=== PATIENT | male | born 1940 | race Caucasian/White ===

== ENCOUNTER 2016-05-18 09:45 | Day surgery (SDC) | payer MEDICARE, OTHER ==
--- NOTE | ~2016-05-18 | EGD ---
EGD REPORT [facility] [address] [address] NAME: MARKY BRYANT : 44 STATUS : REG [facility] PAT#: [id number] AGE: 75 ADM/REG DATE : 05/18/16 MR#: [id number] REPORT SERV DATE: 05/18/16 DICTATED BY: SUZY RICH DATE: 05/19/16 REPORT STATUS : Draft TRANSCRIBED BY: [facility] DATE: 05/19/16 Endoscopy Center Patient Name: Marky Bryant Date of : 1940 Attending MD: KAY RICH MD Procedure Date No Time: 05/18/2016 Procedure: Colonoscopy Indications: Clinically significant diarrhea of unexplained origin Referring MD: COLIN ROYAL Medicines: See the Anesthesia note for documentation of the administered medications Complications: No immediate complications. Procedure: Pre-Anesthesia Assessment: - ASA Grade Assessment: III - A patient with severe systemic disease. - Prior to the procedure, a History and Physical was performed, and patient medications and allergies were reviewed. The patient's tolerance of previous anesthesia was also reviewed. The risks and benefits of the procedure and the sedation options and risks were discussed with the patient. All questions were answered, and informed consent was obtained. Prior Anticoagulants: The patient has taken no previous anticoagulant or antiplatelet agents. After reviewing the risks and benefits, the patient was deemed in satisfactory condition to undergo the procedure. After I obtained informed consent, the scope was passed under direct vision. Throughout the procedure, the patient's blood pressure, pulse, and oxygen saturations were monitored continuously. The PCF [id number] was introduced through the anus and advanced to the cecum, identified by appendiceal orifice and ileocecal valve. The ileocecal valve, appendiceal orifice and rectum were photographed. The entire colon was examined. The colonoscopy was performed without difficulty. The patient tolerated the procedure well. The quality of the bowel preparation was adequate. Findings: The perianal and digital rectal examinations were normal. Normal mucosa was found in the entire colon. Biopsies were taken with a cold forceps for histology. Non-bleeding internal hemorrhoids were found during retroflexion and were Grade I (internal hemorrhoids that do not prolapse). No other significant abnormalities were identified in a careful EGD REPORT [address] [address] NAME: MARKY BRYANT : 44 STATUS : REG [facility]#: [id number] AGE: 75 ADM/REG DATE : 05/18/16 MR#: [id number] REPORT SERV DATE: 05/18/16 DICTATED BY: SUZY RICH DATE: 05/19/16 REPORT STATUS : Draft TRANSCRIBED BY: [facility] DATE: 05/19/16 examination of the remainder of the colon. Recommendation: - Patient has a contact number available for emergencies. The signs and symptoms of potential delayed complications were discussed with the patient. Return to normal activities tomorrow. Written discharge instructions were provided to the patient. - Regular diet. - Discharge patient to home. - Continue present medications. - Await pathology results. - Repeat colonoscopy is not recommended for surveillance. Procedure Code(s): --- Professional --- 98532, Colonoscopy, flexible, proximal to splenic flexure; with biopsy, single or multiple Diagnosis Code(s): --- Professional --- R19.7, Diarrhea, unspecified CPT copyright 2013 [employer]. All rights reserved. The codes documented in this report are preliminary and upon incident coordinator review may be revised to meet current compliance requirements. KAY RICH MD 05/18/2016 1:13 PM This report has been signed electronically. Number of Addenda: 0 Note Initiated On: 05/18/2016 12:42 PM Scope Withdrawal Time 0 hours 6 minutes 22 seconds [id number] [id number]
[~2016-05-18 09:45] MED LIST: AMB5 PO; ARANESP40 IV; ASAB PO; BACTROCR TOP; CEFT2 PO; CELEXA10 PO; CELEXA20 PO; CLARIT10 PO; COREG6 PO; CRESTOR20 MG PO; D.O.S.100 MG PO; GLUCOPHXR PO; HEPA50006 SC; INHALER; INSNOVR SC; LACT30UDL PO; LEVEMFLXPN SC; LEVEMIR SC; LIPITOR10 PO; LIPITOR20 PO; LOTREL1 CA5 PO; MEDROLPAK4 PO; MUCINEX600 MG PO; NEUR300 PO; NORCO1 TA1 PO; NOVOLOG SC; NOVOPEN SC; PACERONE100 MG PO; PACERONE200 MG PO; PEP20 PO; PHENERGAN25 MG/ML IJ; PHOSLO PO; PROVENTSOL INH; SINGULAIR1 PO; SYMAX-SR0.375 MG PO; SYMBICORT 160/41 INH INH; T PO; TEKTURNA300 MG PO; TESS PO; TOPXL25 PO; TYLENOL ARTH650 MG PO; ULTRAM50 PO; [UNRECOGNIZED DRUG - OTHER]
[2016-05-18 10:27] LABS: CALCIUM, SERUM 8.5 MG/DL (8.5-10.4); CHLORIDE, SERUM 101 MMOL/L (96-112); GFR AFRICAN AMERICAN 22 ML/MIN (>=60); GFR NON AFRICAN AMERICAN 19 ML/MIN (>=60); GLUCOSE, SERUM 238 MG/DL (60-99); POTASSIUM, SERUM 4.1 MMOL/L (3.5-5.3); SODIUM, SERUM 142 MMOL/L (135-148)
[2016-05-18 10:28] LABS: BUN (BLOOD UREA NITROGEN) 18 MG/DL (6-23); CO2 (CARBON DIOXIDE) 31 MMOL/L (24-34); CREATININE 3.13 MG/DL (0.70-1.30)
== END 2016-05-18 23:59 | disposition home or self-care (01) ==
LOC: DMU 09:45
PROVIDERS: Anesthesiology; Internal Medicine Gastroenterology
PROC: 0DBE8ZX Excision of Large Intestine, Via Natural or Artificial Opening Endoscopic, Diagnostic (ICD-10-PCS; principal; 2016-05-18 11:30)
DX: K64.0 First degree hemorrhoids (principal); E11.40 Type 2 diabetes mellitus with diabetic neuropathy, unspecified; I25.10 Atherosclerotic heart disease of native coronary artery without angina pectoris; I25.2 Old myocardial infarction; J44.9 Chronic obstructive pulmonary disease, unspecified; M19.90 Unspecified osteoarthritis, unspecified site; F32.9 Major depressive disorder, single episode, unspecified; Z95.1 Presence of aortocoronary bypass graft; Z79.4 Long term (current) use of insulin; Z79.899 Other long term (current) drug therapy; Z90.49 Acquired absence of other specified parts of digestive tract; Z98.890 Other specified postprocedural states
CPT/HCPCS: 80048; 88305

== ENCOUNTER 2016-05-29 15:45 | Inpatient (IN) | payer MEDICARE, OTHER ==
--- NOTE | ~2016-05-29 | CN ---
Consultation Report [facility] [address] [place]. [address] NAME: DAT BRYANT : 44 STATUS : ADM IN [facility]#: [id number] AGE: 75 ADM/REG DATE : 05/29/16 MR#: [id number] REPORT SERV DATE: 05/30/16 DICTATED BY: ALFONSO GONG IV DATE: 05/29/16 REPORT STATUS : Draft TRANSCRIBED BY: BERNARDO DATE: 05/29/16 CRITICAL CARE CONSULT DATE OF CONSULTATION: 05/29/2016 REASON FOR REQUEST: Reported transient PEA arrest requiring several chest compressions, now awake and responsive. History was obtained from the family, the patient, and from the records. HISTORY OF PRESENT ILLNESS: Mr. Bryant is a 75-year-old male with a history of end-stage renal disease, on dialysis, diabetes mellitus, hyperlipidemia, obstructive sleep apnea, noncompliant with CPAP, coronary artery disease, who was admitted to the ICU after thrombectomy to the left fistula, now with likely respiratory event with questionable transient loss of pulse. The patient has had end-stage renal disease since his coronary artery bypass grafting in 2012. He developed a thrombus in his left upper arm fistula for which he underwent thrombectomy today. The patient, according to the notes from PACU, had agonal respiratory efforts when he arrived into the PACU, and as they were hooking up the monitor, they failed to feel a carotid pulse. The patient had one cycle of CPR with return of spontaneous breathing and consciousness and pulse. The patient was being Ambu bagged during this period of time. The patient was conversant with no complaints at that point though he was moved to the ICU for observation. The patient currently denies shortness of breath, chest pain. He had no symptoms of cough, sputum production, fevers, chills, sweats, or hemoptysis prior to presentation. He is not on bronchodilator medications, though he is on supplemental oxygen at nighttime with which he is noncompliant. The patient carries a diagnosis of severe obstructive sleep apnea, though has had considerable weight loss and is noncompliant with his CPAP therapy. The notes that his snoring has improved and the patient denies significant sedentary hypersomnolence. PULMONARY HISTORY: Remarkable for no history of childhood asthma, known adult obstructive lung disease or previous pneumonia. He has a 95-foir-[id number] smoking history, having quit 35 years ago. 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 He is reportedly up to date with seasonal influenza vaccine and pneumococcal vaccinations. PAST MEDICAL HISTORY: Remarkable for: 1. End-stage renal disease, on dialysis. 2. Diabetes mellitus. 3. Hyperlipidemia. 4. Obstructive sleep apnea. 5. Coronary artery disease. SURGERIES: 1. Cholecystectomy. 2. Umbilical hernia repair. Consultation Report [address] [place]. [address] NAME: DAT BRYANT : 44 STATUS : ADM IN PAT#: [id number] AGE: 75 ADM/REG DATE : 05/29/16 MR#: [id number] REPORT SERV DATE: 05/30/16 DICTATED BY: ALFONSO GONG IV DATE: 05/29/16 REPORT STATUS : Draft TRANSCRIBED BY: BERNARDO DATE: 05/29/16 3. Coronary artery bypass grafting. 4. PEG tube placement with closure of the gastrostomy hole. 5. Fistula placement for dialysis. ALLERGIES: NO KNOWN DRUG ALLERGIES. MEDICATIONS: Listed medications at this time are only Neurontin 300 mg at bedtime, 4 units of short-acting insulin twice a day, and Levemir 2 units twice a day. SOCIAL HISTORY: Remarkable for the remote tobacco use as above. He denies alcohol or illicit drug use. He is and has four children. FAMILY HISTORY: He denies any significant illnesses in the family members. REVIEW OF SYSTEMS: 14-systems reviewed and pertinent positives as noted above. PHYSICAL EXAMINATION: GENERAL: This is an obese, elderly male, in no current distress. He is wearing supplemental oxygen. VITAL SIGNS: Temperature is 98.6, pulse is 80, respiratory rate is 25, saturation is 96% on 3 L, blood pressure is 162/78. HEENT: The patient is normocephalic, atraumatic. Extraocular movements are intact. Pupils reactive to light. Sclerae and conjunctivae are normal. He has a nasal cannula in place. He is edentulous. He has Mallampati 4 airway with marked narrowing of the posterior pharyngeal space. NECK: Without any palpable lymphadenopathy or thyromegaly. CHEST: The patient has decreased breath sounds with a normal expiratory phase. There are no crackles, wheezes, or rhonchi noted. Sternotomy scar. CARDIOVASCULAR: Jugular venous pulsations are difficult to elicit secondary to body habitus. He has a distant regular S1, S2 with no clear murmur or S3. Peripheral pulses are diminished. Carotid upstrokes are 1+ with no bruit. ABDOMEN: Obese, soft. There are hypoactive bowel sounds. There is no palpable hepatosplenomegaly or masses. Surgical scars are noted. GENITOURINARY: The patient has normal male external genitalia. EXTREMITIES: Demonstrate the fistula in his left upper arm. There is no cyanosis, clubbing, or palpable cords. NEUROLOGIC: Strength is 5/5 and sensation is intact to light touch. LABORATORY DATA: Chest x-ray demonstrates postsurgical changes, coronary artery bypass grafting. It is a rotated film. No focal infiltrates are noted. There is a linear scar in the left mid lung field which is noted on previous studies. LABORATORY DATA: CBC: Hemoglobin 9.6, hematocrit 30.3, platelet count was 291,000, white blood cell count of 6.9. Sodium is 142, potassium 4.4, chloride 102, bicarb of 30, BUN 28, Consultation Report [place] [id number] [facility] [place]. [address] NAME: DAT BRYANT : 44 STATUS : ADM IN PAT#: [id number] AGE: 75 ADM/REG DATE : 05/29/16 MR#: [id number] REPORT SERV DATE: 05/30/16 DICTATED BY: ALFONSO GONG IV DATE: 05/29/16 REPORT STATUS : Draft TRANSCRIBED BY: BERNARDO DATE: 05/29/16 creatinine 3.77, glucose of 168, calcium is 8.3. A PH 7.36 pCO2 of 51, pO2 of 121 on his blood gas in 3 L. ASSESSMENT AND PLAN: 1. Respiratory. This is likely a primary respiratory event. By description, the patient has hypercapnia which may be secondary to some obese hypoventilation syndrome or residual sedation after his procedure. The patient has previous pulmonary function studies demonstrating no chronic obstructive pulmonary disease in 2013. The patient will have oxygen titrated to maintain saturation 90% to 94% range. The patient has by report severe obstructive sleep apnea and is currently not compliant with CPAP though has had considerable weight loss. We discussed obtaining a repeat outpatient sleep evaluation. DuoNeb will be given as needed for wheezing. 2. Cardiovascular. We will monitor for any dysrhythmias, serial enzymes will be obtained. If there is nothing abnormal in EKG, hydralazine will be given as needed for elevated blood pressure. 3. Endocrinologic. Thyroid functions will be obtained with hypercapnia. Levemir dose will be continued with an increase insulin sliding scale. Hemoglobin A1c will be obtained. 4. Renal. Dialysis will be provided tomorrow. 5. Gastrointestinal. [employer] renal diet has been ordered. 6. Hematologic. Heparin subcutaneous for deep vein thrombosis prophylaxis. 7. Neurologic. We will continue the outpatient Neurontin. 8. Infectious Disease. Urine culture will be obtained with a previous recurrent urinary infections. Thank you for consulting us. We will follow the patient with you. NM/MODL Alfonso Gong IV, M.D. / [id number] CC: Pasquale Mena M.D.
--- NOTE | ~2016-05-29 | CN ---
Consultation Report [facility] [address] [place]. [address] NAME: DAT BRYANT : 44 STATUS : ADM IN [facility]#: [id number] AGE: 75 ADM/REG DATE : 05/29/16 MR#: [id number] REPORT SERV DATE: 05/30/16 DICTATED BY: ANAND ORTEGA DATE: 05/30/16 REPORT STATUS : Draft TRANSCRIBED BY: MODBerenice DATE: 05/30/16 CARDIOLOGY CONSULTATION NOTE DATE OF CONSULTATION: 05/30/2016 REASON FOR CONSULTATION: Cardiac arrest following open thrombectomy of left AV dialysis fistula. HISTORY OF PRESENT ILLNESS: Mr. Bryant is a pleasant 75-year-old man who is a patient of Dr. Hemant Jasso. The patient has a history of coronary artery disease, status post coronary artery bypass grafting surgery in the year 2012. The patient developed end-stage renal disease following bypass surgery. He has been on hemodialysis since 2012. The patient had an AV fistula placed shortly following development of end-stage renal disease. The patient has had multiple procedures for thrombectomy of his AV fistula. He was admitted for an open thrombectomy yesterday. The patient describes an approximately two-month history of progressive exertional dyspnea, though he denies any significant chest pain. Of note, the patient did have typical angina prior to bypass surgery. The patient otherwise had no significant symptoms before surgery. The surgery was performed without significant complications. The patient was being brought back to the PACU, when he suddenly developed asystole. CPR was started, and the patient had return of spontaneous circulation before any medications could be administered. He eventually woke up, and at this point, feels back to his usual state of health. The patient presently denies any unusual chest pain or dyspnea. The Cardiology Service has been consulted to make further recommendations in the setting of the patient's postoperative cardiac arrest. PAST MEDICAL HISTORY: 1. Coronary artery disease, status post coronary artery bypass grafting in the year 2012. 2. Aortic sclerosis without stenosis. 3. Type 2 diabetes - insulin dependent. 4. End-stage renal disease, on hemodialysis. 5. Hypertension. 6. Dyslipidemia. 7. Untreated obstructive sleep apnea. PAST SURGICAL HISTORY: Significant for: 1. Coronary artery bypass graft surgery with MORENO to LAD, saphenous vein graft to the first diagonal, and saphenous vein graft to the posterior descending artery in 08/2012. 2. AV fistula placement in approximately the year 2012 with multiple subsequent revisions and procedures for thrombosis. FAMILY HISTORY: Noncontributory. SOCIAL HISTORY: The patient stopped smoking more than 30 years ago. He has no significant history of alcohol use. He is . Consultation Report [place] [id number] [place]. [address] NAME: DAT BRYANT : 44 STATUS : ADM IN PAT#: [id number] AGE: 75 ADM/REG DATE : 05/29/16 MR#: [id number] REPORT SERV DATE: 05/30/16 DICTATED BY: ANAND ORTEGA DATE: 05/30/16 REPORT STATUS : Draft TRANSCRIBED BY: BERNARDO DATE: 05/30/16 ALLERGIES: THE PATIENT HAS NO KNOWN MEDICATION ALLERGIES. HOME MEDICATIONS: The patient apparently stopped all of his cardiac medications. He is presently taking only the following. 1. Gabapentin 300 mg p.o. q.h.s. 2. NovoLog insulin 4 units subcutaneously twice daily. 3. Levemir insulin 2 units subcutaneously twice daily. REVIEW OF SYSTEMS: A complete 12-system review was performed. This is noncontributory except for the pertinent positives and negatives noted in the history of present illness above. PHYSICAL EXAMINATION: VITAL SIGNS: Temperature is 98.6 degrees Fahrenheit, blood pressure is 161/75 mmHg, heart rate is currently 72 beats per minute and regular, respirations 14, and oxygen saturation is 96% on a 2 L nasal cannula. CONSTITUTIONAL: The patient is an obese white man in no acute distress. EYES: PERRL, EOMI, clear conjunctiva. HEAD/MNT: NCAT with moist mucous membranes and grossly normal hard and soft palate. NECK: Supple with no obvious thyromegaly or lymphadenopathy CARDIOVASCULAR: There is a regular rhythm with a normal S1 and a physiologically split second heart sound. There is a grade 1/6 systolic ejection murmur consistent with aortic sclerosis versus flow murmur. The jugular venous pressure is difficult to estimate, but appears to be at the upper limit of normal at 8 cm. PULMONARY: Clear to auscultation bilaterally, no wheezing, rales or rhonchi noted. No dullness to percussion. Non-labored. ABDOMINAL: Soft, non-tender, non-distended with no hepatosplenomegaly noted. EXTREMITIES: There is an AV fistula in the left upper extremity with normal bruit. Sutures are in place over the patient's surgical wound. The wound appears clean, dry, and intact with no erythema or other evidence of infection. MUSCULOSKELETAL: Grossly normal strength and range of motion in all extremities INTEGUMENTARY: Skin appears intact with no bruises, wounds or active lesions noted NEURO/PSYC: Alert and oriented x3, with no dysarthria, facial droop or lateralizing weakness noted. IMAGIN-lead EKG: A 12-lead EKG from 05/30/2016 at 0322 hours shows normal sinus rhythm with an incomplete right bundle-branch block pattern. There is poor anterior R-wave progression noted. There are nonspecific ST/T-wave abnormalities. The chest x-ray shows changes of coronary artery bypass grafting surgery with mild-to- moderate pulmonary vascular congestion. LABORATORY DATA: Troponin I is less than 0.02. CBC shows a white blood cell count of 6.2, hemoglobin 9.3, hematocrit 29, and platelets 253. Electrolytes show a sodium of 142, Consultation Report [facility] [address] [facility] [place]. [address] NAME: DAT BRYANT : 44 STATUS : ADM IN [facility]#: [id number] AGE: 75 ADM/REG DATE : 05/29/16 MR#: [id number] REPORT SERV DATE: 05/30/16 DICTATED BY: ANAND ORTEGA DATE: 05/30/16 REPORT STATUS : Draft TRANSCRIBED BY: MODL DATE: 05/30/16 potassium 4.1, chloride is 102, CO2 of 28, BUN is 30, creatinine is 3.8, and glucose is 262. Calcium 7.9. Magnesium 1.9. Albumin is 2.6. The patient's repeat troponin I is 0.03. TSH is normal at 0.78. Free T4 is 1.05. Hemoglobin A1c is 7.3. ASSESSMENT AND PLAN: 1. Status post asystole/cardiopulmonary arrest: Given the patient's two-month history of progressive dyspnea, I feel coronary angiography is warranted to evaluate for occlusive coronary artery disease or disease involving the patient's bypass grafts. Risks and benefits of cardiac catheterization were discussed with the patient. The patient is currently asymptomatic and myocardial infarction has been ruled out. The patient will be scheduled for cardiac catheterization tomorrow morning. An echocardiogram will be obtained today to ensure the patient does not develop any significant worsening of his LV systolic function. The patient will continue on a heparin drip. 2. Type 2 diabetes: The patient is being followed by the Hospital Medicine Service and the Critical Care Service. 3. End-stage renal disease: We will try to coordinate with the Nephrology Service to arrange for hemodialysis following the patient's cardiac catheterization. Thank you for allowing me to participate in the care of Mr. Bryant. The Cardiology Service will continue to follow the patient closely during this hospitalization. ANIYA/BERNARDO Anand Ortega MD / [id number] CC: Pasquale Mena M.D. NO PCP
--- NOTE | ~2016-05-29 | HP ---
History And Physical [address] [place]. [address] NAME: DAT NIEVES : 44 STATUS : ADM IN PAT#: [id number] AGE: 75 ADM/REG DATE : 05/29/16 MR#: [id number] REPORT SERV DATE: 05/30/16 DICTATED BY: RAVINDER WHEELER DATE: 05/30/16 REPORT STATUS : Draft TRANSCRIBED BY: MODL DATE: 05/30/16 DATE OF ADMISSION: 05/29/2016 HISTORY: The patient is a 75-year-old male who presents with occlusion of his left arm AV fistula. He said it was worked on approximately three weeks ago. He dialyzed last three days ago. However, today at dialysis, it was not able to function. He is currently without any other complaints. REVIEW OF SYSTEMS: He denies fever, chills, or stomach ache. He denies chest pain, palpitations, shortness of breath, cough, or GI complaints. PAST MEDICAL HISTORY: Significant for end-stage renal disease, coronary artery disease, diabetes, hypertension, and hypercholesterolemia. PAST SURGICAL HISTORY: Significant for multiple access procedures in the left arm and coronary bypass surgery. SOCIAL HISTORY: Negative for current tobacco use. FAMILY HISTORY: Noncontributory. ALLERGIES: LISTED ON THE CHART. PHYSICAL EXAMINATION: GENERAL: The patient is in no distress. VITAL SIGNS: Blood pressure 201/88 and pulse 67. LUNGS: Clear. HEART: Regular. He has pulsatile flow in his left arm AV fistula in the distal upper arm with no pulse in the proximal upper arm. He has a palpable radial artery pulse. IMPRESSION: End-stage renal disease with clotted left arm fistula. PLAN: The plan is for thrombectomy and admission afterwards for dialysis tomorrow. SHIRLEY/BERNARDO Ravinder Wheeler M.D. / [id number] CC: Ravinder Wheeler M.D. History And Physical [address] [place]. [address] NAME: DAT NIEVES : 44 STATUS : ADM IN PAT#: [id number] AGE: 75 ADM/REG DATE : 05/29/16 MR#: [id number] REPORT SERV DATE: 05/30/16 DICTATED BY: RAVINDER WHEELER DATE: 05/30/16 REPORT STATUS : Draft TRANSCRIBED BY: BERNARDO DATE: 05/30/16 HUBER CANTOR
--- NOTE | ~2016-05-29 | OP ---
Record Of Operation [facility] [address] [place]. [address] NAME: DAT NIEVES : 42 STATUS : ADM IN PAT#: [id number] AGE: 75 ADM/REG DATE : 05/29/16 MR#: [id number] REPORT SERV DATE: 05/30/16 DICTATED BY: RAVINDER WHEELER DATE: 05/29/16 REPORT STATUS : Draft TRANSCRIBED BY: MODL DATE: 05/29/16 DATE OF PROCEDURE: 05/29/2016 PREOPERATIVE DIAGNOSIS: Clotted left arm arteriovenous fistula. POSTOPERATIVE DIAGNOSIS: Clotted left arm arteriovenous fistula. PROCEDURE: 1. Open thrombectomy, left arm arteriovenous fistula. 2. Fistulogram. 3. Angioplasty, proximal cephalic vein. PARTS ROOM ASSISTANT: Jordan. ANESTHESIA: Local with sedation. COMPLICATIONS: None. BLOOD LOSS: 200 mL. HISTORY: The patient is a 75-year-old male with a left brachiocephalic fistula. There is noted to be nonfunctional dialysis. It was thought he would benefit from thrombectomy. This was discussed with the patient in detail and he expressed understanding and desire to proceed. DESCRIPTION OF PROCEDURE: The patient was taken to the operating room and placed in the supine position. He was given IV sedation without complication. Left arm was prepped and draped in sterile fashion. Ultrasound confirmed thrombus within the fistula. 1% lidocaine was infiltrated in the skin and subcutaneous tissue, mid fistula and a transverse incision created. Dissection revealed the vein, it was freed circumferentially and isolated with vesseloop. The patient was given 5000 units of heparin intravenously. A transverse venotomy was created. Clot was milked from the proximal and distal aspect of the fistula. 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 The arterial portion was controlled with a vascular clamp and 4 Jf passed into the venous portion multiple times removing thrombus; however, there was poor back bleeding. A 7 Divehi sheath was placed and fistulogram showed a patent cephalic vein with high-grade stenosis at its proximal aspect and patent central veins. An 8 x 60 balloon was used to angioplasty the area of stenosis as well as the cephalic vein to the sheath. Post fistulogram showed improved flow with some mild irregularities still. A 4 Jf was used to perform distal thrombectomy and more thrombus was removed. A 10 x 40 balloon was used to angioplasty the stenotic area at the cephalic origin. Post fistulogram showed it to be patent as well as remained fistula. The venous portion was clamped, attention was turned to the arterial limb, and fistulogram showed this to be patent with residual thrombus near the sheath. This was removed with compressing the fistula manually removing the residual clot. This was then controlled with a vascular clamp and the venotomy closed with running 4-0 Monocryl suture. Flow was restored and there was a thrill distally in the fistula. 1% Record Of Operation [facility] [address] [place]. [address] NAME: DAT NIEVES : 42 STATUS : ADM IN PAT#: [id number] AGE: 75 ADM/REG DATE : 05/29/16 MR#: [id number] REPORT SERV DATE: 05/30/16 DICTATED BY: RAVINDER WHEELER DATE: 05/29/16 REPORT STATUS : Draft TRANSCRIBED BY: BERNARDO DATE: 05/29/16 lidocaine was infiltrated distally because there was still some pulsatility to the fistula. It was accessed with a micropuncture needle, wire passed easily. [place] removed. Micropuncture sheath placed. Fistulogram showed a patent fistula with mild stenosis in the proximal upper arm and residual stenosis at the cephalic vein origin as well. This was angioplastied at the cephalic vein origin with a 10 mm balloon; however, there was residual stenosis. A 12 x 40 high-pressure balloon was then used to angioplasty this area and post fistulogram showed it to be widely patent with no residual stenosis. The 8 mm balloon was used to angioplasty the cephalic vein in the proximal upper arm and post fistulogram showed this area to be patent now with no stenosis. There was a good thrill in the fistula as well. There was felt to be an excellent result. The sheath was removed and access closed with a 4-0 Monocryl suture. The incision was closed with 3-0 Vicryl subcutaneous suture followed by a 4 Monocryl subcuticular suture and Dermabond dressing applied. The patient tolerated the procedure well. He will be admitted overnight for dialysis tomorrow. SHIRLEY/BERNARDO Ravinder Wheeler M.D. / [id number] CC: Ravinder Wheeler M.D.
--- NOTE | ~2016-05-29 | DS ---
Discharge Summary [facility] [address] [place]. [address] NAME: DAT NIEVES : 42 STATUS : DIS IN PAT#: [id number] AGE: 75 ADM/REG DATE : 05/29/16 MR#: [id number] REPORT SERV DATE: 06/02/16 DICTATED BY: LUCIO AGUILA JR DATE: 06/01/16 REPORT STATUS : Draft TRANSCRIBED BY: MODBerenice DATE: 06/01/16 ADMISSION DATE: 05/29/2016 DISCHARGE DATE: 06/01/2016 CONSULTING PHYSICIANS: Dr. Pasquale Mena, Dr. Armando Ortega, as well as Anesthesia Services. DISMISSAL DIAGNOSES: 1. Status post cardiopulmonary arrest with resuscitation. 2. Coronary artery disease, with no immediately treatable lesion seen on coronary arteriogram yesterday. 3. Remote coronary artery bypass grafting with patent grafts seen on study yesterday. 4. End-stage renal disease. 5. Insulin-dependent diabetes mellitus. 6. Peripheral vascular disease. 7. Dialysis dependence. DISMISSAL MEDICATIONS: 1. Aspirin 81 mg daily. 2. Atorvastatin 40 mg daily. 3. Gabapentin 300 mg nightly. 4. Insulin as pre-hospital. 5. Metoprolol succinate 25 mg daily. ALLERGIES: NONE ARE IDENTIFIED. FOLLOWUP: With Dr. Reji Jasso in two to four weeks. Follow up Dr. Pasquale Mena in four weeks. Follow up [facility] tomorrow on his usual schedule. HOSPITAL COURSE: The patient had come into the hospital with clotted AV fistula for an elective open thrombectomy. He was described as having been awake and responsive postoperatively in the operating room, however, on arrival in the post anesthesia care unit, he was noted to be unresponsive and a palpable pulse could not be identified. CPR was begun. EKG attached and showed what is said to be asystole. Apparently, pulse returned before any medications were given. The patient had a poor respiratory effort and was treated by anesthesiologist. He was admitted overnight for observation to the intensive care unit, there were no events. He was seen by Cardiology with decision made to investigate his coronary graft, and I refer you to the operative note for that intervention. Assistant Professor Of Surgery states there were no occlusions of his bypass grafts and there were no interventional lesions seen at coronary angiography. He was seen and examined today on hemodialysis unit, feels well, he is anticipating dismissal. Assistant Professor Of Surgery has added a beta linda, lipid management, and aspirin to his regimen. Discharge Summary [address]. [address] NAME: DAT NIEVES : 42 STATUS : DIS IN PAT#: [id number] AGE: 75 ADM/REG DATE : 05/29/16 MR#: [id number] REPORT SERV DATE: 06/02/16 DICTATED BY: LUCIO AGUILA JR DATE: 06/01/16 REPORT STATUS : Draft TRANSCRIBED BY: MODL DATE: 06/01/16 Though the patient has had previous bypass surgery, he was not on a statin at the time of hospitalization. The patient has no recall as to why he would not have been on a statin. PHYSICAL EXAMINATION: VITAL SIGNS: At dismissal, blood pressure is 160/70, heart rate 70 on the beta linda. GENERAL: He is awake and alert. Color is good. SKIN: Warm and dry. He does have a pale appearance. NEUROLOGIC: Cognition is good. Facial symmetry is present. NECK: Jugular venous distention is not present. LUNGS: Clear without increased work of breathing. HEART: Tones were regular without audible rub, murmur, or gallop. ABDOMEN: Soft, and nontender. GENITALIA: Not examined. EXTREMITIES: Without edema and there is no peripheral cyanosis. LABORATORY DATA: Today, the sodium is 139, potassium 4.2, chloride 101, CO2 of 28, the calcium is 8.1, magnesium 2.0, phosphorus 4.9. White count 6000, hemoglobin 9.8, platelets 215,000. DF/MODL Lucio Aguila Jr, M.D. / [id number] CC: James James Jr, M.D. [facility]
[2016-05-29 17:17] LABS: BASOPHILS 0.1 %; BASOPHILS ABSOLUTE 0.01 10/3/uL (0.0-0.16); EOSINOPHILS 4.3 %; HEMATOCRIT 30.3 % (40.0-51.0); HEMOGLOBIN 9.6 g/dL (13.6-17.8); IMMATURE GRANULOCYTES 0.4 %; IMMATURE GRANULOCYTES ABSOLUTE 0.03 10/3/uL (0.0-0.11); LYMPHOCYTES 30.4 %; MEAN CORPUSCULAR HEMOGLOB 31.4 pg (26.0-34.0); MEAN PLATELET VOLUME 9.4 fL (9.2-13.0); MONOCYTES 8.7 %; NEUTROPHILS 56.1 %; NEUTROPHILS ABSOLUTE 3.87 10/3/uL (2.02-8.40); PLATELET COUNT 291 10/3/uL (150-400); RBC DISTRIBUTION WIDTH 14.7 % (12.0-16.0); RED CELL COUNT 3.06 10/6/uL (4.7-6.1); WHITE BLOOD CELLS 6.9 10/3/uL (4.5-10.5)
[2016-05-29 17:18] LABS: MANUAL DIFF NO %; MEAN CORPUS HGB CONC 31.7 g/dL (32.0-36.0)
[2016-05-29 17:26] LABS: BUN (BLOOD UREA NITROGEN) 28 MG/DL (6-23); CALCIUM, SERUM 8.3 MG/DL (8.5-10.4); CHLORIDE, SERUM 102 MMOL/L (96-112); CO2 (CARBON DIOXIDE) 30 MMOL/L (24-34); CREATININE 3.77 MG/DL (0.70-1.30); GFR AFRICAN AMERICAN 17 ML/MIN (>=60); GFR NON AFRICAN AMERICAN 15 ML/MIN (>=60); GLUCOSE, SERUM 268 MG/DL (60-99); POTASSIUM, SERUM 4.4 MMOL/L (3.5-5.3); SODIUM, SERUM 142 MMOL/L (135-148)
[2016-05-29 20:21] LABS: ALLENS TEST Pos; BE (BASE EXCESS) 1.9 MEQ/L (0 +/- 2.5); CARBOXYHEMOGLOBIN 2.5 % (0-3); DEVICE SM; HCO3 (ACTUAL BICARBONATE) 27.9 MEQ/L (23-27); HEMOBLOGIN CONTENT 10.1 G/DL (14-18); INSTRUMENT SERIAL # 11843; METHEMOGLOBIN 0.3 % (0-3); O2 CONTENT 13.7 VOL% (18-24); OPERATOR ID 17370; PCO2 (CO2 TENSION) 51 MMHG (35-45); PO2 (O2 TENSION) 121 MMHG (79-93); SAMPLE Arterial; pH 7.36 (7.37-7.43)
[2016-05-30 04:55] LABS: BASOPHILS 0.2 %; BASOPHILS ABSOLUTE 0.01 10/3/uL (0.0-0.16); EOSINOPHILS 3.4 %; EOSINOPHILS ABSOLUTE 0.21 10/3/uL (0.0-0.53); HEMATOCRIT 29.2 % (40.0-51.0); HEMOGLOBIN 9.3 g/dL (13.6-17.8); IMMATURE GRANULOCYTES 0.3 %; IMMATURE GRANULOCYTES ABSOLUTE 0.02 10/3/uL (0.0-0.11); LYMPHOCYTES 20.5 %; LYMPHOCYTES ABSOLUTE 1.27 10/3/uL (0.67-4.30); MANUAL DIFF NO %; MEAN CORPUS HGB CONC 31.8 g/dL (32.0-36.0); MEAN CORPUSCULAR HEMOGLOB 32.1 pg (26.0-34.0); MEAN CORPUSCULAR VOLUME 100.7 fL (80-100); MEAN PLATELET VOLUME 9.1 fL (9.2-13.0); MONOCYTES 6.6 %; MONOCYTES ABSOLUTE 0.41 10/3/uL (0.21-1.20); NEUTROPHILS ABSOLUTE 4.28 10/3/uL (2.02-8.40); PLATELET COUNT 253 10/3/uL (150-400); RBC DISTRIBUTION WIDTH 14.8 % (12.0-16.0); WHITE BLOOD CELLS 6.2 10/3/uL (4.5-10.5)
[2016-05-30 05:16] LABS: ALBUMIN 2.6 G/DL (3.5-5.0); BUN (BLOOD UREA NITROGEN) 30 MG/DL (6-23); CALCIUM, SERUM 7.9 MG/DL (8.5-10.4); CHLORIDE, SERUM 102 MMOL/L (96-112); CO2 (CARBON DIOXIDE) 28 MMOL/L (24-34); FREE T4 1.05 NG/DL (0.76-1.46); GFR AFRICAN AMERICAN 17 ML/MIN (>=60); GFR NON AFRICAN AMERICAN 15 ML/MIN (>=60); GLUCOSE, SERUM 262 MG/DL (60-99); PHOSPHORUS, SERUM 4.1 MG/DL (2.5-4.5); POTASSIUM, SERUM 4.1 MMOL/L (3.5-5.3); SGOT(AST) 34 U/L (5-40); SGPT(ALT) 31 U/L (5-65); SODIUM, SERUM 142 MMOL/L (135-148); T4 (THYROXINE) TOTAL 7.6 MCG/DL (4.5-12.0); TOTAL BILIRUBIN 0.4 MG/DL (0-1.2); TOTAL PROTEIN 6.5 G/DL (6.0-8.5); TROPONIN I 0.03 NG/ML (<0.05)
[2016-05-30 05:18] LABS: INTERNATIONAL NORMAL RATI 1.2 UNITS (-); PROTIME (NOT ORD) 14.8 SEC (12.0-14.5)
[2016-05-30 05:21] LABS: ALKALINE PHOSPHATASE 81 U/L (45-117); DIRECT BILIRUBIN < 0.1 MG/DL (0.0-0.4); INDIRECT BILIRUBIN(NOT ORDER) 0.3 MG/DL (0.1-0.9)
[2016-05-31 05:14] LABS: BASOPHILS 0.2 %; BASOPHILS ABSOLUTE 0.02 10/3/uL (0.0-0.16); EOSINOPHILS 4.9 %; HEMOGLOBIN 9.9 g/dL (13.6-17.8); IMMATURE GRANULOCYTES 0.4 %; IMMATURE GRANULOCYTES ABSOLUTE 0.03 10/3/uL (0.0-0.11); LYMPHOCYTES 30.6 %; LYMPHOCYTES ABSOLUTE 2.48 10/3/uL (0.67-4.30); MEAN CORPUS HGB CONC 30.9 g/dL (32.0-36.0); MEAN CORPUSCULAR HEMOGLOB 31.7 pg (26.0-34.0); MEAN CORPUSCULAR VOLUME 102.6 fL (80-100); MEAN PLATELET VOLUME 9.5 fL (9.2-13.0); MONOCYTES 8.9 %; MONOCYTES ABSOLUTE 0.72 10/3/uL (0.21-1.20); NEUTROPHILS ABSOLUTE 4.45 10/3/uL (2.02-8.40); PLATELET COUNT 254 10/3/uL (150-400); RED CELL COUNT 3.12 10/6/uL (4.7-6.1); WHITE BLOOD CELLS 8.1 10/3/uL (4.5-10.5)
[2016-05-31 05:16] LABS: MANUAL DIFF NO %
[2016-05-31 05:34] LABS: CALCIUM, SERUM 8.6 MG/DL (8.5-10.4); CHLORIDE, SERUM 103 MMOL/L (96-112); CO2 (CARBON DIOXIDE) 29 MMOL/L (24-34); GFR AFRICAN AMERICAN 17 ML/MIN (>=60); GFR NON AFRICAN AMERICAN 14 ML/MIN (>=60); GLUCOSE, SERUM 227 MG/DL (60-99); PHOSPHORUS, SERUM 3.2 MG/DL (2.5-4.5); POTASSIUM, SERUM 3.7 MMOL/L (3.5-5.3); SODIUM, SERUM 141 MMOL/L (135-148)
[2016-05-31 05:45] LABS: BUN (BLOOD UREA NITROGEN) 21 MG/DL (6-23)
[2016-05-31 09:55] LABS: INTERNATIONAL NORMAL RATI 1.2 UNITS (-)
[2016-06-01 04:56] LABS: BASOPHILS 0.2 %; BASOPHILS ABSOLUTE 0.01 10/3/uL (0.0-0.16); EOSINOPHILS ABSOLUTE 0.37 10/3/uL (0.0-0.53); HEMATOCRIT 30.7 % (40.0-51.0); HEMOGLOBIN 9.8 g/dL (13.6-17.8); IMMATURE GRANULOCYTES 0.5 %; IMMATURE GRANULOCYTES ABSOLUTE 0.03 10/3/uL (0.0-0.11); LYMPHOCYTES ABSOLUTE 1.49 10/3/uL (0.67-4.30); MEAN CORPUS HGB CONC 31.9 g/dL (32.0-36.0); MEAN CORPUSCULAR VOLUME 100.3 fL (80-100); MEAN PLATELET VOLUME 9.4 fL (9.2-13.0); MONOCYTES 9.3 %; MONOCYTES ABSOLUTE 0.58 10/3/uL (0.21-1.20); NEUTROPHILS ABSOLUTE 3.73 10/3/uL (2.02-8.40); PLATELET COUNT 215 10/3/uL (150-400); RBC DISTRIBUTION WIDTH 14.5 % (12.0-16.0); RED CELL COUNT 3.06 10/6/uL (4.7-6.1); WHITE BLOOD CELLS 6.2 10/3/uL (4.5-10.5)
[2016-06-01 04:58] LABS: MANUAL DIFF NO %
[2016-06-01 05:07] LABS: ALBUMIN 2.6 G/DL (3.5-5.0); CALCIUM, SERUM 8.1 MG/DL (8.5-10.4); CHLORIDE, SERUM 101 MMOL/L (96-112); CO2 (CARBON DIOXIDE) 29 MMOL/L (24-34); POTASSIUM, SERUM 4.2 MMOL/L (3.5-5.3); SODIUM, SERUM 139 MMOL/L (135-148)
[2016-06-01 05:11] LABS: BUN (BLOOD UREA NITROGEN) 31 MG/DL (6-23); CREATININE 5.28 MG/DL (0.70-1.30); GFR AFRICAN AMERICAN 12 ML/MIN (>=60); GFR NON AFRICAN AMERICAN 10 ML/MIN (>=60); GLUCOSE, SERUM 296 MG/DL (60-99); PHOSPHORUS, SERUM 4.9 MG/DL (2.5-4.5)
[2016-06-01] MEDS ORDERED: TOPXL25 PO (12:46)
[2016-06-01] MEDS ORDERED: LIPITOR40 PO (12:48)
[2016-06-01] MEDS ORDERED: ASAB PO (12:48)
== END 2016-06-01 15:59 | disposition home or self-care (01) | DRG 252 ==
LOC: SDC 15:45 → CCU 20:56 → 2SO 05-31 15:13
PROVIDERS: Internal Medicine; Internal Medicine Nephrology; Surgery
PROC: 5A12012 Performance of Cardiac Output, Single, Manual (ICD-10-PCS; 2016-05-29)
PROC: 5A1945Z Respiratory Ventilation, 24-96 Consecutive Hours (ICD-10-PCS; 2016-05-29)
PROC: 0BH17EZ Insertion of Endotracheal Airway into Trachea, Via Natural or Artificial Opening (ICD-10-PCS; 2016-05-29)
PROC: B51W1ZZ Fluoroscopy of Dialysis Shunt/Fistula using Low Osmolar Contrast (ICD-10-PCS; principal; 2016-05-29 18:15)
PROC: 05CF0ZZ Extirpation of Matter from Left Cephalic Vein, Open Approach (ICD-10-PCS; 2016-05-29 18:15)
PROC: 057F0ZZ Dilation of Left Cephalic Vein, Open Approach (ICD-10-PCS; 2016-05-29 18:15)
PROC: 5A09457 Assistance with Respiratory Ventilation, 24-96 Consecutive Hours, Continuous Positive Airway Pressure (ICD-10-PCS; 2016-05-30)
PROC: 5A1D60Z (ICD-10-PCS; 2016-05-30)
PROC: B2151ZZ Fluoroscopy of Left Heart using Low Osmolar Contrast (ICD-10-PCS; 2016-05-31)
PROC: B2131ZZ Fluoroscopy of Multiple Coronary Artery Bypass Grafts using Low Osmolar Contrast (ICD-10-PCS; 2016-05-31)
PROC: B2111ZZ Fluoroscopy of Multiple Coronary Arteries using Low Osmolar Contrast (ICD-10-PCS; 2016-05-31)
PROC: 4A023N7 Measurement of Cardiac Sampling and Pressure, Left Heart, Percutaneous Approach (ICD-10-PCS; 2016-05-31)
DX: T82.868A Thrombosis due to vascular prosthetic devices, implants and grafts, initial encounter (principal); N18.6 End stage renal disease; I74.9 Embolism and thrombosis of unspecified artery; R06.89 Other abnormalities of breathing; I12.0 Hypertensive chronic kidney disease with stage 5 chronic kidney disease or end stage renal disease; E11.22 Type 2 diabetes mellitus with diabetic chronic kidney disease; I97.121 Postprocedural cardiac arrest following other surgery; I25.110 Atherosclerotic heart disease of native coronary artery with unstable angina pectoris; E78.5 Hyperlipidemia, unspecified; G47.33 Obstructive sleep apnea (adult) (pediatric); E66.9 Obesity, unspecified; I70.0 Atherosclerosis of aorta; I45.10 Unspecified right bundle-branch block; I25.2 Old myocardial infarction; Z99.2 Dependence on renal dialysis; Z79.4 Long term (current) use of insulin; Z95.1 Presence of aortocoronary bypass graft; Z91.19 Patient's noncompliance with other medical treatment and regimen; Z87.891 Personal history of nicotine dependence; Z98.890 Other specified postprocedural states
CPT/HCPCS: 36600; 36833; 71010; 80048; 80069; 80076; 81001; 82805; 82962; 83036; 83735; 84100; 84436; 84439; 84443; 84484; 85025; 85610; 87641; 93005; 93306; 93459; 94640; 99152; 99153; A9270-GY; C1725; C1757; C1760; C1769; C1894; G0257; J0690; J2250; J3010; Q9966; Q9967

== ENCOUNTER 2016-06-19 15:09 | Day surgery (SDC) | payer MEDICARE, OTHER ==
--- NOTE | ~2016-06-19 | OP ---
Record Of Operation [facility] [address] [place]. [address] NAME: DAT NIEVES : 42 STATUS : [facility]#: [id number] AGE: 76 ADM/REG DATE : 06/19/16 MR#: [id number] REPORT SERV DATE: 06/20/16 DICTATED BY: RAVINDER MENA DATE: 06/19/16 REPORT STATUS : Draft TRANSCRIBED BY: MODL DATE: 06/19/16 DATE OF PROCEDURE: 06/19/2016 PREOPERATIVE DIAGNOSIS: End-stage renal disease with clotted left arm access. POSTOPERATIVE DIAGNOSIS: End-stage renal disease with clotted left arm access. PROCEDURE: 1. Right IJ PermCath. 2. Left brachiobasilic fistula. SURGEON: Ravinder Mena M.D. ADMITTING MANAGER: Renee. ANESTHESIA: Local with sedation. COMPLICATIONS: None. BLOOD LOSS: 20 mL. HISTORY: The patient is a 76-year-old male with a left brachiocephalic fistula which was thrombosed again three weeks after recent intervention. Due to multiple thromboses over the past four months, it was felt the best option is new access. This was discussed in detail with the patient and , they expressed understanding and desired to proceed. DESCRIPTION OF PROCEDURE: The patient was taken to the operating room and placed in the supine position. He was given IV sedation without complication. Neck, chest, and left arm prepped and draped in sterile fashion. 1% lidocaine was infiltrated in the skin and subcutaneous tissue along the internal jugular vein. Patency was confirmed with compression using ultrasound. Under ultrasound guidance, an 18-gauge needle placed into the internal jugular vein. Wire was passed through the SVC and IVC which was confirmed with fluoroscopy. The needle was removed. A site for PermCath exit was chosen on the chest wall. An 11 blade was used to create an incision here and enlarged the access site. A 24-curved PermCath was tunneled from the exit site to the access site. Under fluoroscopic guidance, the access site was dilated, then the peel-away sheath and dilator passed over the wire in the SVC. The wire and dilator removed. The catheter was placed through the peel-away sheath. The sheath peeled away without difficulty. Both ports were aspirated and flushed without difficulty and were locked with full strength heparin. The PermCath was in good position with the tip in the right atrium and no kinking. The access site and exit site were closed with 4-0 Monocryl suture. The PermCath was secured to the chest wall with 2-0 Ethilon suture. Sterile dressing applied. Attention was turned to the left arm and adequate basilic vein identified in the upper arm. 1% lidocaine was infiltrated here and a transverse incision created, dissection performed to identify the basilic vein which was freed circumferentially and isolated a vessel loop. Record Of Operation [facility] [address] [place]. [address] NAME: DAT NIEVES : 42 STATUS : [facility]#: [id number] AGE: 76 ADM/REG DATE : 06/19/16 MR#: [id number] REPORT SERV DATE: 06/20/16 DICTATED BY: RAVINDER MENA DATE: 06/19/16 REPORT STATUS : Draft TRANSCRIBED BY: BERNARDO DATE: 06/19/16 Attention was turned medially and dissection performed to identify the brachial artery which was freed circumferentially as well. The patient was given 3000 units of heparin intravenously. The vein measured 2.5 mm and artery measured 3.5 mm. The vein was dissected as distally as possible and controlled with clips divided proximal to the clips. The artery was controlled proximally and distally with vascular clamps. An 11 blade used to create an arteriotomy which was extended with Santoyo scissors. The vein was spatulated and sewn end-to side artery with running 6-0 Prolene suture. Upon completion, flow was restored. The vein was dissected as proximally as possible. Multiple branches were controlled with clips and divided. The vein dilated and had excellent Dopplerable bruit. There was a strong Doppler signal at the wrist as well. Hemostasis was achieved and subcutaneous tissue closed with 3- 0 Vicryl suture, skin closed with 4-0 Monocryl suture. Dermabond dressing applied. The patient tolerated the procedure well and was taken to the recovery room and discharged to home when stable. SHIRLEY/BERNARDO Ravinder Mena M.D. / [id number] CC: James Cornejo M.D.
[~2016-06-19 15:09] MED LIST changes: +LIPITOR40 PO
[2016-06-19 16:29] LABS: BASOPHILS 0.3 %; BASOPHILS ABSOLUTE 0.02 10/3/uL (0.0-0.16); EOSINOPHILS 6.1 %; EOSINOPHILS ABSOLUTE 0.46 10/3/uL (0.0-0.53); HEMOGLOBIN 10.9 g/dL (13.6-17.8); IMMATURE GRANULOCYTES 0.3 %; IMMATURE GRANULOCYTES ABSOLUTE 0.02 10/3/uL (0.0-0.11); LYMPHOCYTES 36.5 %; LYMPHOCYTES ABSOLUTE 2.75 10/3/uL (0.67-4.30); MEAN CORPUS HGB CONC 31.3 g/dL (32.0-36.0); MEAN CORPUSCULAR HEMOGLOB 30.5 pg (26.0-34.0); MEAN CORPUSCULAR VOLUME 97.5 fL (80-100); MEAN PLATELET VOLUME 9.5 fL (9.2-13.0); MONOCYTES 6.9 %; MONOCYTES ABSOLUTE 0.52 10/3/uL (0.21-1.20); NEUTROPHILS 49.9 %; NEUTROPHILS ABSOLUTE 3.77 10/3/uL (2.02-8.40); PLATELET COUNT 248 10/3/uL (150-400); RBC DISTRIBUTION WIDTH 15.3 % (12.0-16.0); RED CELL COUNT 3.57 10/6/uL (4.7-6.1); WHITE BLOOD CELLS 7.5 10/3/uL (4.5-10.5)
[2016-06-19 16:31] LABS: HEMATOCRIT 34.8 % (40.0-51.0); MANUAL DIFF NO %
[2016-06-19 16:49] LABS: CALCIUM, SERUM 8.7 MG/DL (8.5-10.4); CHLORIDE, SERUM 107 MMOL/L (96-112); CO2 (CARBON DIOXIDE) 26 MMOL/L (24-34); POTASSIUM, SERUM 4.8 MMOL/L (3.5-5.3); SODIUM, SERUM 140 MMOL/L (135-148)
[2016-06-19 16:52] LABS: BUN (BLOOD UREA NITROGEN) 25 MG/DL (6-23); CREATININE 3.56 MG/DL (0.70-1.30); GFR AFRICAN AMERICAN 18 ML/MIN (>=60); GFR NON AFRICAN AMERICAN 16 ML/MIN (>=60); GLUCOSE, SERUM 178 MG/DL (60-99)
== END 2016-06-19 21:51 | disposition home or self-care (01) ==
LOC: SDC 15:09
PROVIDERS: Surgery
PROC: 05HM33Z Insertion of Infusion Device into Right Internal Jugular Vein, Percutaneous Approach (ICD-10-PCS; principal; 2016-06-19 16:45)
PROC: 03180AD Bypass Left Brachial Artery to Upper Arm Vein with Autologous Arterial Tissue, Open Approach (ICD-10-PCS; 2016-06-19 16:45)
DX: T82.868A Thrombosis due to vascular prosthetic devices, implants and grafts, initial encounter (principal); I12.0 Hypertensive chronic kidney disease with stage 5 chronic kidney disease or end stage renal disease; E11.22 Type 2 diabetes mellitus with diabetic chronic kidney disease; N18.6 End stage renal disease; I25.10 Atherosclerotic heart disease of native coronary artery without angina pectoris; D64.9 Anemia, unspecified; G47.33 Obstructive sleep apnea (adult) (pediatric); Z95.1 Presence of aortocoronary bypass graft
CPT/HCPCS: 36558; 36821; 77001; 80048; 82962; 85025; A9270-GY; C1750; J0690; J2405; J3010; Q9966

== ENCOUNTER 2016-07-24 16:12 | Inpatient (IN) | payer MEDICARE, OTHER ==
--- NOTE | ~2016-07-24 | EGD ---
EGD REPORT [facility] [address] [address] NAME: MARKY BRYANT : 42 STATUS : ADM IN PAT#: [id number] AGE: 76 ADM/REG DATE : 07/24/16 MR#: [id number] REPORT SERV DATE: 07/26/16 DICTATED BY: HEMANT CELESTE DATE: 07/26/16 REPORT STATUS : Draft TRANSCRIBED BY: [facility] DATE: 07/26/16 Endoscopy Center Patient Name: Marky Bryant Date of : 1940 Attending MD: HEMANT CELESTE MD Procedure Date No Time: 07/26/2016 Procedure: Upper GI endoscopy Indications: Endoscopy to assess diarrhea in patient suspected of having disease of the small-bowel Referring MD: KAY NINA MD Medicines: Monitored Anesthesia Care Complications: No immediate complications. Estimated blood loss: Minimal. Procedure: Pre-Anesthesia Assessment: - ASA Grade Assessment: IV - A patient with severe systemic disease that is a constant threat to life. After obtaining informed consent, the endoscope was passed under direct vision. Throughout the procedure, the patient's blood pressure, pulse, and oxygen saturations were monitored continuously. The GIF [id number] was introduced through the mouth, and advanced to the second part of duodenum. The upper GI endoscopy was accomplished without difficulty. The patient tolerated the procedure well. Findings: The examined esophagus was normal. The stomach was normal. The examined duodenum was normal. Biopsies were taken with a cold forceps for evaluation of celiac disease. Estimated blood loss was minimal. The cardia and gastric fundus were normal on retroflexion. Impression: - Normal examination. - Duodenal biopsies taken Recommendation: - Return patient to [facility] for [facility] care. - Imodium 2 caplets PO PRN after loose bowel movement. - Use Questran at 1 packet (4 grams) PO AC. - Return to GI clinic in 2 weeks. Procedure Code(s): --- Professional --- 75063, Esophagogastroduodenoscopy, flexible, transoral; with biopsy, single or multiple EGD REPORT [facility] [address] [place], [place] [address]. [address] NAME: MARKY BRYANT : 42 STATUS : ADM IN [facility]#: [id number] AGE: 76 ADM/REG DATE : 07/24/16 MR#: [id number] REPORT SERV DATE: 07/26/16 DICTATED BY: HEMANT CELESTE DATE: 07/26/16 REPORT STATUS : Draft TRANSCRIBED BY: FAD ? [facility] DATE: 07/26/16 Diagnosis Code(s): --- Professional --- R19.7, Diarrhea, unspecified CPT copyright 2013 [employer]. All rights reserved. The codes documented in this report are preliminary and upon dentist attendant review may be revised to meet current compliance requirements. Hemant Celeste MD HEMANT CELESTE MD 07/26/2016 9:12 AM This report has been signed electronically. Number of Addenda: 0 Note Initiated On: 07/26/2016 8:34 AM Scope Withdrawal Time 0 hours 0 minutes 0 seconds [address] [place] [address]
--- NOTE | ~2016-07-24 | HP ---
History And Physical [facility] [address] [place]. [address] NAME: DAT BRYANT : 42 STATUS : ADM IN [facility]#: [id number] AGE: 76 ADM/REG DATE : 07/24/16 MR#: [id number] REPORT SERV DATE: 07/25/16 DICTATED BY: KRIS DESAI V. DATE: 07/24/16 REPORT STATUS : Draft TRANSCRIBED BY: MODBerenice DATE: 07/24/16 DATE OF ADMISSION: 07/24/2016 RENAL H AND P. CHIEF COMPLAINT: Diarrhea and abdominal distention. HISTORY OF PRESENT ILLNESS: Mr. Bryant is a 76-year-old gentleman who dialyzes Sunday, Sunday, Sunday at [facility] with ESRD secondary to diabetes. He has had a several week history of diarrhea with workup done by Dr. Benitez. Reportedly has had a colonoscopy that was unremarkable. He has had 2 to 3 days of nausea and diarrhea. Began to have emesis today. describes diarrhea last evening almost every hour. Denies any bloody diarrhea. Denies any shortness of breath or chest pain at present. PAST MEDICAL HISTORY: 1. ESRD. 2. Diabetes mellitus. 3. CAD. 4. Hypertension. PAST SURGICAL HISTORY: CABG multiple access procedures in the left arm, now dialyzed with a PermCath. SOCIAL HISTORY: No current tobacco use. FAMILY HISTORY: Noncontributory. MEDICATION: List is being compiled. ALLERGIES: NO KNOWN DRUG ALLERGIES. REVIEW OF SYSTEMS: All review of systems are negative except as described above. PHYSICAL EXAMINATION: VITAL SIGNS: Temperature is 99.9, heart rate 102, blood pressure 114/69. GENERAL: He is a pleasant elderly gentleman with no increased work of breathing. Pupils equal, round, reactive. Sclerae are anicteric. Oropharynx clear with dentures above and below. NECK: Trachea midline. No thyromegaly. No supraclavicular nodes. No axillary lymph nodes. CHEST: Clear to auscultation with equal bilateral breath sounds. CARDIOVASCULAR: Regular rhythm. No rub. ABDOMEN: Soft, minimally distended. No rebound. No guarding. No hepatosplenomegaly appreciated. Bowel sounds were present. No lower extremity edema. No clubbing. No cyanosis. SKIN: Warm and dry. No rash or lesions. History And Physical [facility] [id number] [place]. [address] NAME: DAT BRYANT : 42 STATUS : ADM IN PAT#: [id number] AGE: 76 ADM/REG DATE : 07/24/16 MR#: [id number] REPORT SERV DATE: 07/25/16 DICTATED BY: KRIS DESAI V. DATE: 07/24/16 REPORT STATUS : Draft TRANSCRIBED BY: BERNARDO DATE: 07/24/16 CT scan showed a question of ileus versus a partial small bowel obstruction. White count 6.5, hematocrit 37%. Potassium 4.1. IMPRESSION: A 76-year-old gentleman with a several week history of diarrhea with recurrence of the same. Unclear if this is diabetic gastropathy with frequent diarrhea as a result. CT results are somewhat hard to rectify with his symptomatology of frequent stools. Does not appear toxic and does not appear to have a surgical abdomen at this time. PLAN: 1. Gentle IV fluid. 2. Dialysis again on Sunday per his usual schedule. He had most of his dialysis session today. 3. Zofran. 4. We will ask GI to comment in the morning. 5. Review his home medication list once it is compiled. 6. All the above discussed with the patient and the patient's family at the patient's bedside. TRIXIE/BERNARDO Kris Desai M.D. / [id number] CC: Felipe Montero M.D.
--- NOTE | ~2016-07-24 | DS ---
Discharge Summary [facility] [address] [place]. [address] NAME: DAT BRYANT : 44 STATUS : DIS IN PAT#: [id number] AGE: 76 ADM/REG DATE : 07/24/16 MR#: [id number] REPORT SERV DATE: 07/29/16 DICTATED BY: NAA BURNETT DATE: 07/28/16 REPORT STATUS : Draft TRANSCRIBED BY: MODBerenice DATE: 07/28/16 ADMISSION DATE: 07/24/2016 DISCHARGE DATE: 07/28/2016 INDICATION FOR ADMISSION: Chronic diarrhea. DISCHARGE DIAGNOSES: 1. Sslfh-uu-bqdmcce diarrhea with abdominal distention, possibly related to cholecystectomy, improved on Questran. 2. End-stage renal disease, dialyzing [facility] at [facility] by [facility]F. 3. Type 2 diabetes mellitus. 4. Coronary artery disease with history of CABG. 5. Cardiopulmonary arrest in May 2016 at time of AVF intervention. 6. Cardiac cath with coronary artery disease, needing medical therapy only. 7. Peripheral vascular disease. 8. Hypertension. 9. Remote cholecystectomy. 10.Remote herniorrhaphy. 11.Urinary tract infection. 12.History of chronic cystitis without hematuria. 13.History of prostatitis and benign prostatic hypertrophy. 14.History of osteoarthritis. 15.Anemia. HOSPITAL COURSE: Mr. Bryant is a 76-year-old gentleman, who dialyzes chronically at [facility] by [facility]. He had undergone several weeks of diarrhea with recent worsening of diarrhea over the past two to three days and note of nausea with vomiting. He had seen Dr. Shilo Benitez in the outpatient setting and undergone colonoscopy, which was apparently unremarkable. Upon admission to the hospital, there was some concern about ileus, but this resolved with no intervention. He has a history of cholecystectomy and due to abdominal complaints, he was placed on multiple GI medicines, including Florastor, Questran, Bentyl, Prilosec. His symptoms gradually improved with adjustment of these medicines. He underwent EGD with biopsies with no reported lesions on his upper endoscopy. His blood pressure medicine was adjusted with discontinuation of metoprolol and initiation of diltiazem. He was having no complaints at time of release from the hospital and he was tolerating oral intake well. He was treated with Rocephin for multi-organism UTI. This may have been related to his history of chronic cystitis. He will be discharged on Cipro. Overall, he was much improved at time of release. DIET: 2000-calorie ADA renal diet. ACTIVITY: Per home routine. FOLLOWUP: Dialysis as scheduled. Followup with Dr. Shilo Benitez as scheduled. Discharge Summary [address] [address] NAME: DAT BRYANT : 42 STATUS : DIS IN PAT#: [id number] AGE: 76 ADM/REG DATE : 07/24/16 MR#: [id number] REPORT SERV DATE: 07/29/16 DICTATED BY: NAA BURNETT DATE: 07/28/16 REPORT STATUS : Draft TRANSCRIBED BY: BERNARDO DATE: 07/28/16 DISCHARGE MEDICATIONS: Neurontin 100 mg at bedtime, NovoLog insulin 20 units subcutaneously twice daily, Levemir insulin 30 units subcutaneously at bedtime, sodium bicarbonate one daily p.r.n., Tylenol 500 mg tablets two twice daily p.r.n., Protonix 40 mg daily, Florastor one capsule twice daily, Cipro 500 mg p.o. daily x5 days and discontinue, Lipitor 40 mg at bedtime, Questran 4 g p.o. three times daily, Bentyl 10 mg p.o. before meals t.i.d. and p.r.n., Cardizem CD 120 mg p.o. daily. DICTATED BY: James Landeros/BERNARDO Naa Burnett M.D. / [id number] CC: Felipe Montero M.D.
--- NOTE | ~2016-07-24 | CN ---
Consultation Report [facility] [address] [place]. [address] NAME: MARKY BRYANT : 44 STATUS : ADM IN PAT#: [id number] AGE: 76 ADM/REG DATE : 07/24/16 MR#: [id number] REPORT SERV DATE: 07/25/16 DICTATED BY: MICAELA ALVAREZ DATE: 07/25/16 REPORT STATUS : Draft TRANSCRIBED BY: MODL DATE: 07/25/16 GI CONSULTATION DATE OF CONSULTATION: 07/25/2016 Marky Bryant is a 76-year-old male patient admitted on 07/24/2016. REASON FOR CONSULTATION: Evaluation and management of acute on chronic diarrhea and abdominal distention. HISTORY OF PRESENT ILLNESS: Mr. Bryant is a 76-year-old male patient, known to Dr. Shilo Benitez in the outpatient setting, who presented on the with a chief complaint of diarrhea. Per his 's report, he has been having ongoing diarrhea for multiple months now. He was seen by Dr. Benitez in May of this year. Undergoing colonoscopy secondary to the complaints of diarrhea. On that exam, he had normal mucosa throughout the entire colon. He had random biopsies taken for evaluation for microscopic colitis which returned negative. He had findings of nonbleeding internal hemorrhoids which were noted to be grade 1 with no other significant abnormalities being noted. Per the 's report, he has never had an EGD. He has persisted to have diarrhea. She states that within 20 minutes of any oral intake, he has excessive watery stools. She states they are nonbloody. There is no melena. No hematochezia. She states that he complains of some epigastric "not in my stomach" type pain. He states that he has indigestion with heartburn with daily Lisa-Arcola use. He has had nausea with vomiting. White blood cell count on admission 6.5. He had a CT scan of the abdomen and pelvis without contrast that exam showing some mildly distended small bowel loops throughout the abdomen with some scattered air-fluid levels. The distal ileum tapered to normal caliber with no focal transition point being seen. Findings suggest a diffuse ileus versus a partial small-bowel obstruction. He had gas and liquid stool seen throughout his colon. The states he has continued to have diarrhea. He had an episode of hypoglycemia this morning. He is somewhat groggy but awakens and can give a meaningful history. I have discussed with the patient as well as his that we will obtain stool studies. We will start him on some medications for irritable bowel type symptoms and as well as plan for upper endoscopy on 07/26/2016, and repeat KUB. PAST MEDICAL HISTORY: He has a past medical history for end-stage renal disease requiring hemodialysis, type 2 diabetes, coronary artery disease with a history of CABG and hypertension. SURGERIES: CABG. Multiple access procedures on the left arm. PermCath placement. SOCIAL HISTORY: He denies alcohol, tobacco, or illicits. He lives independently with his . FAMILY HISTORY: Noncontributory from a GI standpoint. ALLERGIES: ARE LISTED TO NOTHING. Consultation Report [place] [id number] [facility] [place]. [address] NAME: MARKY BRYANT : 44 STATUS : ADM IN [facility]#: [id number] AGE: 76 ADM/REG DATE : 07/24/16 MR#: [id number] REPORT SERV DATE: 07/25/16 DICTATED BY: MICAELA ALVAREZ DATE: 07/25/16 REPORT STATUS : Draft TRANSCRIBED BY: BERNARDO DATE: 07/25/16 HOME MEDICATIONS: His home medications consist of Tylenol, Lipitor, Neurontin, NovoLog, Levemir, Toprol, and Lisa-Arcola. REVIEW OF SYSTEMS: A 10-point review of systems obtained. Pertinent positives addressed in the history of present illness. PHYSICAL EXAMINATION: VITAL SIGNS: Temperature is 98.8, pulse 76, respirations 15, and blood pressure 127/81. NEUROLOGIC: Reveals a groggy male, resting in bed, who awakens to name. GENERAL: He is cooperative. He is in no acute distress. He is chronically ill appearing in nature. HEAD, EARS, EYES, NOSE, AND THROAT: Anicteric. Pupils equal, round, and reactive to light and accommodation. Normocephalic and atraumatic. NECK: No JVD. No palpable nodes. Supple. LUNGS: Diminished throughout. Normal respiratory effort exhibited. CARDIOVASCULAR SYSTEM: Regular rate and rhythm. ABDOMEN: Soft and round with hypoactive bowel sounds in all four quadrants. He has some mild tenderness to palpation in the epigastric region. No rebound or guarding elicited. EXTREMITIES: No edema. Normal distal pulses. SKIN: Warm, dry, and intact. PERTINENT LABORATORY DATA: Sodium is 138, potassium is 3.9, BUN is 36, and creatinine is 4.31. White count 6.1, hemoglobin 11, hematocrit 34.8, and platelet count 169. His total bilirubin is normal at 0.6. He has an alkaline phosphatase of 89 and ALT of 12 and AST of 11 with a lipase of 57. ASSESSMENT AND PLAN: 1. Acute on chronic diarrhea. 2. Questionable ileus. 3. Abdominal pain. 4. Nausea with indigestion and reflux. 5. End-stage renal disease requiring hemodialysis. 6. Type 2 diabetes. 7. Coronary artery disease with history of CABG. 8. Questionable UTI. PLAN: 1. Check stool studies. 2. Repeat KUB to assess ileus versus partial small-bowel obstruction. 3. We will add low-dose Bentyl. 4. EGD in the morning. 5. Hold heparin today. 6. A.m. labs. Consultation Report [address] [place]. [address] NAME: MARKY BRYANT : 44 STATUS : ADM IN [facility]#: [id number] AGE: 76 ADM/REG DATE : 07/24/16 MR#: [id number] REPORT SERV DATE: 07/25/16 DICTATED BY: MICAELA ALVAREZ DATE: 07/25/16 REPORT STATUS : Draft TRANSCRIBED BY: BERNARDO DATE: 07/25/16 7. Other recommendations to follow endoscopy. AUBREY/BERNARDO BRETT Hagan / [id number] CC: Felipe Montero M.D.
[2016-07-24] MEDS ORDERED: TOPXL25 PO (17:57)
[2016-07-24] MEDS ORDERED: LEVEMIR SC (17:57)
[2016-07-24] MEDS ORDERED: NOVOLOG SC (17:57)
[2016-07-24] MEDS ORDERED: LIPITOR40 PO (17:57)
[2016-07-24] MEDS ORDERED: ALKA-SELTZER H1 EACH PO (17:58)
[2016-07-24] MEDS ORDERED: ACET500CAP PO (17:58)
[2016-07-24] MEDS ORDERED: NEUR100 PO (17:58)
[2016-07-24 18:47] LABS: BASOPHILS 0.3 %; BASOPHILS ABSOLUTE 0.02 10/3/uL (0.0-0.16); EOSINOPHILS 1.4 %; EOSINOPHILS ABSOLUTE 0.09 10/3/uL (0.0-0.53); ER CBC TAT 0 Hrs 07 Mins; HEMATOCRIT 37.1 % (40.0-51.0); HEMOGLOBIN 11.7 g/dL (13.6-17.8); IMMATURE GRANULOCYTES 0.3 %; IMMATURE GRANULOCYTES ABSOLUTE 0.02 10/3/uL (0.0-0.11); LYMPHOCYTES ABSOLUTE 0.85 10/3/uL (0.67-4.30); MEAN CORPUS HGB CONC 31.5 g/dL (32.0-36.0); MEAN CORPUSCULAR HEMOGLOB 28.9 pg (26.0-34.0); MONOCYTES ABSOLUTE 0.52 10/3/uL (0.21-1.20); NEUTROPHILS ABSOLUTE 5.04 10/3/uL (2.02-8.40); RBC DISTRIBUTION WIDTH 14.9 % (12.0-16.0); RED CELL COUNT 4.05 10/6/uL (4.7-6.1); WHITE BLOOD CELLS 6.5 10/3/uL (4.5-10.5)
[2016-07-24 18:48] LABS: MANUAL DIFF NO %; MEAN CORPUSCULAR VOLUME 91.6 fL (80-100); PLATELET COUNT 162 10/3/uL (150-400)
[2016-07-24 19:05] LABS: A/G RATIO 0.8 (0.7-1.9); ALKALINE PHOSPHATASE 89 U/L (45-117); CALCIUM, SERUM 8.2 MG/DL (8.5-10.4); CHLORIDE, SERUM 105 MMOL/L (96-112); CO2 (CARBON DIOXIDE) 26 MMOL/L (24-34); CREATININE 3.94 MG/DL (0.70-1.30); GFR AFRICAN AMERICAN 16 ML/MIN (>=60); GFR NON AFRICAN AMERICAN 14 ML/MIN (>=60); GLOBULIN 4.1 G/DL (2.5-4.1); POTASSIUM, SERUM 4.1 MMOL/L (3.5-5.3); SGOT(AST) 11 U/L (5-40); SGPT(ALT) 12 U/L (5-65); SODIUM, SERUM 139 MMOL/L (135-148); TOTAL BILIRUBIN 0.6 MG/DL (0-1.2); TOTAL PROTEIN 7.3 G/DL (6.0-8.5)
[2016-07-24 19:06] LABS: ALBUMIN 3.2 G/DL (3.5-5.0); BUN (BLOOD UREA NITROGEN) 35 MG/DL (6-23); GLUCOSE, SERUM 252 MG/DL (60-99)
[2016-07-25 05:26] LABS: BASOPHILS 0.2 %; BASOPHILS ABSOLUTE 0.01 10/3/uL (0.0-0.16); EOSINOPHILS 4.6 %; EOSINOPHILS ABSOLUTE 0.28 10/3/uL (0.0-0.53); HEMATOCRIT 34.8 % (40.0-51.0); IMMATURE GRANULOCYTES 0.2 %; IMMATURE GRANULOCYTES ABSOLUTE 0.01 10/3/uL (0.0-0.11); LYMPHOCYTES 25.8 %; LYMPHOCYTES ABSOLUTE 1.58 10/3/uL (0.67-4.30); MEAN CORPUS HGB CONC 31.6 g/dL (32.0-36.0); MEAN CORPUSCULAR HEMOGLOB 29.1 pg (26.0-34.0); MEAN CORPUSCULAR VOLUME 92.1 fL (80-100); MEAN PLATELET VOLUME 11.1 fL (9.2-13.0); MONOCYTES 11.3 %; MONOCYTES ABSOLUTE 0.69 10/3/uL (0.21-1.20); NEUTROPHILS 57.9 %; NEUTROPHILS ABSOLUTE 3.56 10/3/uL (2.02-8.40); PLATELET COUNT 169 10/3/uL (150-400); RED CELL COUNT 3.78 10/6/uL (4.7-6.1); WHITE BLOOD CELLS 6.1 10/3/uL (4.5-10.5)
[2016-07-25 05:27] LABS: MANUAL DIFF NO %
[2016-07-25 05:39] LABS: ALBUMIN 2.9 G/DL (3.5-5.0); BUN (BLOOD UREA NITROGEN) 36 MG/DL (6-23); CALCIUM, SERUM 8.3 MG/DL (8.5-10.4); CHLORIDE, SERUM 108 MMOL/L (96-112); CO2 (CARBON DIOXIDE) 23 MMOL/L (24-34); CREATININE 4.31 MG/DL (0.70-1.30); GFR AFRICAN AMERICAN 15 ML/MIN (>=60); GFR NON AFRICAN AMERICAN 13 ML/MIN (>=60); POTASSIUM, SERUM 3.9 MMOL/L (3.5-5.3); SODIUM, SERUM 138 MMOL/L (135-148)
[2016-07-25 05:43] LABS: GLUCOSE, SERUM 163 MG/DL (60-99); PHOSPHORUS, SERUM 2.3 MG/DL (2.5-4.5)
[2016-07-25 11:24] LABS: ASCORBIC ACID (UR NOT ORDER) NEG (NEG); BILIRUBIN, URINE NEGATIVE (NEG); ER URINALYSIS TAT 0 Hrs 12 Mins; KETONE, URINE NEGATIVE (NEG); LEUKOCYTE ESTERASE(NOT OR SMALL (NEG)
[2016-07-25 11:26] LABS: NITRITE (URINE) POS (NEG); WBC (NOT ORDERED) (RFLEX) > 182 (0-5)
[2016-07-26 06:37] LABS: BASOPHILS 0.1 %; BASOPHILS ABSOLUTE 0.01 10/3/uL (0.0-0.16); EOSINOPHILS 5.8 %; HEMATOCRIT 33.8 % (40.0-51.0); HEMOGLOBIN 10.8 g/dL (13.6-17.8); IMMATURE GRANULOCYTES 0.1 %; IMMATURE GRANULOCYTES ABSOLUTE 0.01 10/3/uL (0.0-0.11); LYMPHOCYTES 34.1 %; LYMPHOCYTES ABSOLUTE 2.34 10/3/uL (0.67-4.30); MANUAL DIFF NO %; MEAN CORPUSCULAR HEMOGLOB 29.5 pg (26.0-34.0); MEAN CORPUSCULAR VOLUME 92.3 fL (80-100); MEAN PLATELET VOLUME 10.9 fL (9.2-13.0); MONOCYTES 12.2 %; MONOCYTES ABSOLUTE 0.84 10/3/uL (0.21-1.20); NEUTROPHILS 47.7 %; NEUTROPHILS ABSOLUTE 3.26 10/3/uL (2.02-8.40); PLATELET COUNT 176 10/3/uL (150-400); RBC DISTRIBUTION WIDTH 14.8 % (12.0-16.0); RED CELL COUNT 3.66 10/6/uL (4.7-6.1); WHITE BLOOD CELLS 6.9 10/3/uL (4.5-10.5)
[2016-07-26 06:40] LABS: INTERNATIONAL NORMAL RATI 1.2 UNITS (-); PROTIME (NOT ORD) 14.6 SEC (12.0-14.5)
[2016-07-26 06:52] LABS: CALCIUM, SERUM 8.4 MG/DL (8.5-10.4); CHLORIDE, SERUM 110 MMOL/L (96-112); CO2 (CARBON DIOXIDE) 22 MMOL/L (24-34); CREATININE 4.57 MG/DL (0.70-1.30); GFR AFRICAN AMERICAN 14 ML/MIN (>=60); GFR NON AFRICAN AMERICAN 12 ML/MIN (>=60); POTASSIUM, SERUM 3.6 MMOL/L (3.5-5.3); SODIUM, SERUM 139 MMOL/L (135-148)
[2016-07-26 06:53] LABS: BUN (BLOOD UREA NITROGEN) 40 MG/DL (6-23); GLUCOSE, SERUM 55 MG/DL (60-99)
[2016-07-27 07:22] LABS: BASOPHILS 0.1 %; BASOPHILS ABSOLUTE 0.01 10/3/uL (0.0-0.16); EOSINOPHILS 3.5 %; EOSINOPHILS ABSOLUTE 0.24 10/3/uL (0.0-0.53); HEMATOCRIT 34.4 % (40.0-51.0); HEMOGLOBIN 10.9 g/dL (13.6-17.8); LYMPHOCYTES 20.3 %; MANUAL DIFF NO %; MEAN CORPUS HGB CONC 31.7 g/dL (32.0-36.0); MEAN CORPUSCULAR HEMOGLOB 28.8 pg (26.0-34.0); MEAN PLATELET VOLUME 10.7 fL (9.2-13.0); MONOCYTES 10.9 %; MONOCYTES ABSOLUTE 0.75 10/3/uL (0.21-1.20); NEUTROPHILS 65.2 %; NEUTROPHILS ABSOLUTE 4.51 10/3/uL (2.02-8.40); PLATELET COUNT 144 10/3/uL (150-400); RBC DISTRIBUTION WIDTH 14.9 % (12.0-16.0); RED CELL COUNT 3.78 10/6/uL (4.7-6.1); WHITE BLOOD CELLS 6.9 10/3/uL (4.5-10.5)
[2016-07-27 07:42] LABS: ALBUMIN 2.6 G/DL (3.5-5.0); BUN (BLOOD UREA NITROGEN) 25 MG/DL (6-23); CALCIUM, SERUM 7.8 MG/DL (8.5-10.4); CHLORIDE, SERUM 109 MMOL/L (96-112); CO2 (CARBON DIOXIDE) 26 MMOL/L (24-34); CREATININE 3.24 MG/DL (0.70-1.30); GFR AFRICAN AMERICAN 21 ML/MIN (>=60); GFR NON AFRICAN AMERICAN 18 ML/MIN (>=60); GLUCOSE, SERUM 105 MG/DL (60-99); PHOSPHORUS, SERUM 2.3 MG/DL (2.5-4.5); SODIUM, SERUM 141 MMOL/L (135-148)
[2016-07-28 08:37] LABS: BASOPHILS 0.1 %; BASOPHILS ABSOLUTE 0.01 10/3/uL (0.0-0.16); EOSINOPHILS 4.1 %; EOSINOPHILS ABSOLUTE 0.31 10/3/uL (0.0-0.53); HEMATOCRIT 32.5 % (40.0-51.0); HEMOGLOBIN 10.1 g/dL (13.6-17.8); IMMATURE GRANULOCYTES 0.3 %; IMMATURE GRANULOCYTES ABSOLUTE 0.02 10/3/uL (0.0-0.11); LYMPHOCYTES 30.1 %; LYMPHOCYTES ABSOLUTE 2.29 10/3/uL (0.67-4.30); MEAN CORPUS HGB CONC 31.1 g/dL (32.0-36.0); MEAN CORPUSCULAR HEMOGLOB 28.5 pg (26.0-34.0); MEAN CORPUSCULAR VOLUME 91.5 fL (80-100); MONOCYTES 10.4 %; MONOCYTES ABSOLUTE 0.79 10/3/uL (0.21-1.20); NEUTROPHILS ABSOLUTE 4.18 10/3/uL (2.02-8.40); PLATELET COUNT 163 10/3/uL (150-400); RED CELL COUNT 3.55 10/6/uL (4.7-6.1); WHITE BLOOD CELLS 7.6 10/3/uL (4.5-10.5)
[2016-07-28 08:38] LABS: MANUAL DIFF NO %
[2016-07-28 09:00] LABS: ALBUMIN 2.4 G/DL (3.5-5.0); BUN (BLOOD UREA NITROGEN) 34 MG/DL (6-23); CALCIUM, SERUM 7.8 MG/DL (8.5-10.4); CHLORIDE, SERUM 107 MMOL/L (96-112); CO2 (CARBON DIOXIDE) 25 MMOL/L (24-34); CREATININE 4.21 MG/DL (0.70-1.30); GFR AFRICAN AMERICAN 15 ML/MIN (>=60); GFR NON AFRICAN AMERICAN 13 ML/MIN (>=60); GLUCOSE, SERUM 168 MG/DL (60-99); PHOSPHORUS, SERUM 11.6 MG/DL (2.5-4.5); SODIUM, SERUM 139 MMOL/L (135-148)
[2016-07-28] MEDS ORDERED: CARDCD120 PO (15:49)
[2016-07-28] MEDS ORDERED: BENTYL10 PO (15:50)
[2016-07-28] MEDS ORDERED: QUESLITE PO (15:50)
[2016-07-28] MEDS ORDERED: FLORASTOR250 MG PO (15:51)
[2016-07-28] MEDS ORDERED: CIP5 PO (15:51)
[2016-07-28] MEDS ORDERED: PROTONIX PO (15:51)
== END 2016-07-28 20:14 | disposition home or self-care (01) | DRG 388 ==
LOC: ER 16:12 → 5SO 20:27
PROVIDERS: Internal Medicine Gastroenterology; Internal Medicine Nephrology; Nurse Practitioner; Nurse Practitioner Acute Care; Nurse Practitioner Family; Physician Assistant
PROC: 5A1D60Z (ICD-10-PCS; 2016-07-26)
PROC: 0DB98ZX Excision of Duodenum, Via Natural or Artificial Opening Endoscopic, Diagnostic (ICD-10-PCS; principal; 2016-07-26 08:30)
DX: K56.7 Ileus, unspecified (principal); N18.6 End stage renal disease; E11.22 Type 2 diabetes mellitus with diabetic chronic kidney disease; I12.0 Hypertensive chronic kidney disease with stage 5 chronic kidney disease or end stage renal disease; N39.0 Urinary tract infection, site not specified; Z99.2 Dependence on renal dialysis; I25.10 Atherosclerotic heart disease of native coronary artery without angina pectoris; Z95.1 Presence of aortocoronary bypass graft; Z79.899 Other long term (current) drug therapy; I73.9 Peripheral vascular disease, unspecified; Z90.49 Acquired absence of other specified parts of digestive tract; N40.0 Benign prostatic hyperplasia without lower urinary tract symptoms; M19.90 Unspecified osteoarthritis, unspecified site; Z79.4 Long term (current) use of insulin
CPT/HCPCS: 74000; 74176; 80048; 80053; 80069; 81001; 82962; 83690; 85025; 85610; 87045; 87046; 87046-59; 87086; 87328; 87329; 87493; 87493-59; 87899; 87899-59; 88305; 89055; 96374; 97162-GP; 99285; A9270-GY; C9113; G0257; G8978-CL-GP; G8979-CJ-GP; J2405; J2997